=== PATIENT | female | born 1980 | race Caucasian/White ===

== ENCOUNTER 2020-03-21 06:28 | Emergency (ER) | payer OTHER ==
[~2020-03-21] VITALS: Ht 160 cm; Wt 86.0 kg
[2020-03-21 07:28] LABS: HEMOGLOBIN 12.4 g/dl (12.0-16.0); IMMATURE GRANULOCYTES 0.2 % (0.0-5.0); MEAN CELL VOLUME 89.5 fL CALC (80.0-100.0); MEAN CORPUSCULAR HGB 27.7 pG CALC (26.0-32.0); NEUT# 3.91 thou/uL (2.00-7.15); RED BLOOD COUNT 4.47 mill/uL (4.20-5.60); RED CELL DISTRI WIDTH 14.6 % (11.5-15.5)
[2020-03-21 07:40] LABS: ALBUMIN 4.6 g/dL (3.2-5.0); ALKALINE PHOSPHATASE 69 u/l (38-126); AMYLASE 64 u/l (30-110); ANION GAP 14 (6-22 (CALC)); BILIRUBIN, TOTAL 0.7 mg/dL (0.0-1.4); BUN 17 mg/dL (7-17); BUN/CREATININE RATIO 17 (12-20 (CALC)); CARBON DIOXIDE 26 mmol/l (22-30); CHLORIDE 106 mmol/l (95-108); GFR > 60 ML/MIN (>=60 (CALC)); GFR FOR AFR.AMER. > 60 ML/MIN (>=60 (CALC)); LIPASE 59 u/l (23-300); POTASSIUM 3.7 mmol/l (3.5-5.1); SGOT/AST 26 u/l (14-36); SODIUM 142 mmol/l (137-146); TOTAL PROTEIN 7.8 g/dL (6.3-8.2)
[2020-03-21 08:21] LABS: URINE BILIRUBIN - DIPSTICK NEGATIVE (NEGATIVE); URINE BLOOD DIPSTICK LARGE (NEGATIVE); URINE COLOR YELLOW; URINE GLUCOSE - DIPSTICK NEGATIVE (NEGATIVE); URINE KETONE TRACE mg/dL (NEGATIVE); URINE LEUK ESTERASE NEGATIVE (NEGATIVE); URINE NITRITE - DIPSTICK NEGATIVE (Negative); URINE PROTEIN - DIPSTICK NEGATIVE (NEG-TRACE); URINE SPECIFIC GRAVITY 1.025; URINE UROBILINOGEN - DIPSTICK 0.2 E.U./dL (0.2)
[2020-03-21 08:32] LABS: URINE RBC 25-50 RBC/hpf (0-5)
[2020-03-21 08:33] LABS: URINE BACTERIA FEW hpf
[2020-03-21 08:34] LABS: URINE SQUAMOUS EPITHELIAL CELL FEW EPI/hpf (0-FEW)
[2020-03-21] MEDS ORDERED: PERCOCET 5/325M1 TAB PO (08:40)
[2020-03-21] MEDS ORDERED: ZOFRAN4 MG/TAB PO (08:40)
[2020-03-21] MEDS ORDERED: TAMSULOSIN0.4 MG PO (08:40)
[2020-03-21 08:50] VITALS: BP 127/85
== END 2020-03-21 08:52 | disposition home or self-care (01) | DRG 694 ==
LOC: ED 06:28
PROVIDERS: Family Medicine
DX: N20.1 Calculus of ureter (principal)

== ENCOUNTER 2020-07-20 13:35 | Inpatient (IN) | payer OTHER ==
[~2020-07-20] VITALS: Ht 160 cm; Wt 92.1 kg
[~2020-07-20 13:35] MED LIST: PERCOCET 5/325M1 TAB PO; TAMSULOSIN0.4 MG PO; ZOFRAN4 MG/TAB PO
--- NOTE | 2020-07-20 13:35 | NUR ---
PT ASSISTED TO ROOM VIA W/C BY NURSE LADARIUS
[2020-07-20 14:25] LABS: HEMATOCRIT 37.7 % (37.0-47.0); HEMOGLOBIN 11.6 g/dl (12.0-16.0); IMMATURE GRANULOCYTES 0.6 % (0.0-5.0); MEAN CELL VOLUME 87.7 fL CALC (80.0-100.0); MEAN CORPUSCULAR HGB CONC 30.8 g/dL CAL (32.0-36.0); NEUT# 11.22 thou/uL (2.00-7.15); RED BLOOD COUNT 4.3 mill/uL (4.20-5.60); RED CELL DISTRI WIDTH 14.5 % (11.5-15.5)
--- NOTE | 2020-07-20 14:28 | NUR ---
TREATMENTS COMPLETED AND AWAITING RESULTS. O2 APPLIED. DENIES ANY NEEDS A THIS TIME. ANTIBIOTICS INFUSING INTO PATENT IV.
[2020-07-20 14:45] LABS: ALKALINE PHOSPHATASE 63 u/l (38-126); ANION GAP 12 (6-22 (CALC)); BILIRUBIN, TOTAL 0.6 mg/dL (0.0-1.4); BUN 17 mg/dL (7-17); BUN/CREATININE RATIO 25 (12-20 (CALC)); CARBON DIOXIDE 31 mmol/l (22-30); CHLORIDE 100 mmol/l (95-108); CREATININE 0.7 mg/dL (0.5-1.0); GFR > 60 ML/MIN (>=60 (CALC)); GFR FOR AFR.AMER. > 60 ML/MIN (>=60 (CALC)); LIPASE 37 u/l (23-300); POTASSIUM 3.2 mmol/l (3.5-5.1); SGOT/AST 27 u/l (14-36); SODIUM 140 mmol/l (137-146); TOTAL PROTEIN 7.9 g/dL (6.3-8.2)
[2020-07-20 14:56] LABS: C-REACTIVE PROTEIN 17.6 mg/dL (0-0.9)
--- NOTE | 2020-07-20 15:30 | NUR ---
PT RESTING ON STRETCHER WITH ANTIBIOTICS AND FLUID INFUSING INTO PATENT IV. SHE STATES THAT HER BREATHING HAS IMPROVED AND IS ABLE TO DO SO EFFORTLESSLY.
--- NOTE | 2020-07-20 16:50 | NUR ---
GAVE REPORT TO NIKOLAI
--- NOTE | 2020-07-20 16:55 | NUR ---
PT TRANSPORTED OUT OF ER STABLE AND IN NO DISTRESS BY W/C. CARE ASSUMED TO NIKOLAI Admission Note Report Given to: NIKOLAI Transported by: X Wheelchair Stretcher Transported with: X Nurse Transporter X Patent IV O2 X Carbonating Stone Cleaner Location: ICU X [facility]
--- NOTE | 2020-07-20 17:04 | NUR ---
PT ARRIVED VIA WC WITH STAFF. O2 AND IV SITE.
[2020-07-20 17:30] VITALS: BP 129/69
--- NOTE | 2020-07-20 17:30 | NUR ---
ASSESSMENT IS COMPLETED: IV SITE IS FREE FROM REDNESS OR EDEMA. HR IS REG, PULSES ARE STRONG X4, ABD IS SOFT WITH ACTIVE BS BREATH SOUNDS ARE DIMINISHED, CLEAR AND CRACKLES. O2 @ 2LITERS WITH NC. TELE MONITOR IN PLACE. PT ABLE TO AMBULATE TO THE BATHROOM
--- NOTE | 2020-07-20 17:56 | NUR ---
RECEIVED A CALL FROM SPOUSE AND EXPLAINED RE: NO VISITORS IN THE COVID MOORE. ABLE TO BRING STUFF AND LEAVE AT THE DESK. ALSO HAS A PHONE IN THE ROOM.
--- NOTE | 2020-07-20 18:31 | NUR ---
SPOKE WITH PT RE: RULES OF THE VISITATION WITH COVID PTS. VERBALIZED UNDERSTANDING.
--- NOTE | 2020-07-20 19:58 | NUR ---
PATIENT RESTING IN BED AT THIS TIME WITH O2 VIA NASAL CANNULA IN PLACE-O2 SAT IS 95%. AWAKE ALERT AND ORIENTEDX3. TELE MONITOR IN PLACE. IVF NS PATENT AND INFUSING VIA RAC SITE AT 50CC/HR. SITE IS HEALTHY AT THIS TIME. DENIES ANY DIARRHEA-NO BM FOR A COUPLE DAYS. ABD IS SOFT W33ITH ACTIVE BS. LUNGS ARE CLEAR AND DIMINISHED. STATES THAT HER URINE OUTPUT HAS BEEN DOWN BUT HASN'T BEEN EATING OR DRINKING MUCH LAST COUPLE OF DAYS. APPETITE FOR DINNER ONLY FAIR. NON-PRODUCTIVE COUGH NOTED. INSTRUCTED PATIENT ON USE OF IS Q1H WHILE AWAKE IN REPS OF 10. PATIENT IS ABLE TO DEMONSTRATE PROPER USE OF THE DEVICE. ENCOURAGED PRONING IF POSSIBLE. C/O HEADACHE-3/10 ON PAIN SCALE. MEDICATED WITH TYLENOL 650MG PO. COOL PACK PROVIDED FOR THE BACK OF HER NECK. PATIENT ON ISOLATION FOR COVID. SAFETY PRECAUTIONS REINFORCED. CALL LIGHT IN REACH. WILL CONT TO MONITOR.
--- NOTE | 2020-07-20 22:06 | NUR ---
MINIMAL RELIEF FROM TYLENOL TAKEN EARLIER. STILL 3/3 ON PAIN SCALE. NO OTHER COMPLAINTS AT THIS TIME. O2 VIA NASAL CANNULA IN PLACE AT 2LPM. TELE MONITOR REMAINS IN PLACE. IVF PATENT AND INFUSING VIA RAC SITE AT 50CC/HR. CALL LIGHT IN REACH. WILL CONT TO MONITOR.
[2020-07-20 23:50] VITALS: BP 122/61
--- NOTE | 2020-07-21 00:12 | NUR ---
PATIENT RESTING IN BED-EYES ARE CLOSED AND O2 VIA NASAL CANNULA IN PLACE. O2 SAT IS 97%. RESPS ARE EVEN AND UNLABORED. TELE MONITOR IN PLACE. IVF PATENT AND INFUSING VIA RAC SITE AT 50CC/HR. CALL LIGHT IN REACH. WILL CONT TO MONITOR.
--- NOTE | 2020-07-21 01:39 | NUR ---
PATIENT IS LYING PRONE AT THIS TIME-RESPS ARE EVEN AND UNLABORED AT THIS TIME. O2 VIA NASAL CANNULA IN PLACE. TELE MONITOR IN PLACE. IVF PATENT AND INFUSING VIA RAC SITEW AT 50CC/HR. CALL LIGHT IN REACH. WILL CONT TO MONITOR.
[2020-07-21 04:00] VITALS: BP 121/64
[2020-07-21 05:12] LABS: HEMATOCRIT 38.2 % (37.0-47.0); HEMOGLOBIN 11.6 g/dl (12.0-16.0); IMMATURE GRANULOCYTES 0.9 % (0.0-5.0); MEAN CELL VOLUME 88.8 fL CALC (80.0-100.0); MEAN CORPUSCULAR HGB CONC 30.4 g/dL CAL (32.0-36.0); NEUT# 5.72 thou/uL (2.00-7.15); RED BLOOD COUNT 4.3 mill/uL (4.20-5.60); RED CELL DISTRI WIDTH 14.6 % (11.5-15.5)
[2020-07-21 05:35] LABS: BUN 17 mg/dL (7-17); BUN/CREATININE RATIO 29 (12-20 (CALC)); CARBON DIOXIDE 30 mmol/l (22-30); CHLORIDE 103 mmol/l (95-108); CREATININE 0.6 mg/dL (0.5-1.0); GFR > 60 ML/MIN (>=60 (CALC)); GFR FOR AFR.AMER. > 60 ML/MIN (>=60 (CALC)); SODIUM 139 mmol/l (137-146)
[2020-07-21 05:47] LABS: ANION GAP 10 (6-22 (CALC)); C-REACTIVE PROTEIN 16.8 mg/dL (0-0.9); POTASSIUM 4.3 mmol/l (3.5-5.1)
--- NOTE | 2020-07-21 06:02 | NUR ---
PATIENT AWAKE AND RESTING IN BED WITH O2 VIA NASAL CANNULA IN PLACE. PATIENT WAS ABLE TO LIE PRONE THROUGHOUT THE NIGHT. ENCOURAGED USE OF IS INSTRUCTED. TELE MONITOR IN PLACE. IVF NS PATENT AND INFUSING VIA RAC SITE AT 50CC/HR. CALL LIGHT IN REACH. WILL CONT TO MONITOR.
--- NOTE | 2020-07-21 07:35 | NUR ---
ASSESSMENT IS COMPLETED: NO DISTRESS NOTED.IV SITE IS FREE FROM REDNESS OR EDEMA. HR IS REG, PULSES ARE STRONG X4, ABD IS SOFT WITH ACTIVE BS. BREATH SOUNDS ARE CLEAR AND DIMINISHED. O2 @ 2LITERS WITH NC. SATS ARE 97-98%. PT IS USING THE ISP. TELE MONITOR #[id number] IN USE/
[2020-07-21 07:36] VITALS: BP 110/65
--- NOTE | 2020-07-21 09:47 | NUR ---
PT IS RELAXING IN BED WITH NO DISTRESS NOTED. IV SITE IS FREE FROM REDNESS
[2020-07-21 10:50] VITALS: BP 131/61
--- NOTE | 2020-07-21 11:00 | NUR ---
PT AMBULATING AND GOING TO GET A SHOWER.
[2020-07-21 15:04] VITALS: BP 121/72
--- NOTE | 2020-07-21 18:35 | NUR ---
MOVED PT ROOM [id number] DUE TO MAINTENACE. PT VERBALIZED UNDERSTANDING.
[2020-07-21 19:09] VITALS: BP 156/80
--- NOTE | 2020-07-21 20:30 | NUR ---
PATIENT RESTING IN BED AT THIS TIME-AWAKE ALERT AND ORIENTEDX3. O2 IS OFF AND O2 SAT AT THIS TIME IS 94%. STILL SOB WITH EXHERSION. NON-PRODUCTIVE COUGH. LUNGS ARE CLEAR BUT DIMINISHED. USING IS INSTRUCTED Q1H WHILE AWKAE. ABLE TO DEMONSTRATE PROPER USE OF THE DEVICE. ENCOURAGED PRONING WHEN POSSIBLE. TELE MONITOR IN PLACE-LAST READING SR-60. PATIENT STATES THAT SHE DID HAVE A SMALL BM TODAY. APPETITE SLOWLY RETURNING. ABD IS SOFT WITH ACTIVE BS. NO PERIPHERAL EDEMA. PULSES ARE PALPABLE. IVF NS PATENT AND INFUSING VIA RIGHT AC SITE AT 50CC/HR. PATIENT ON ISOLATION FOR COVID. SAFETY PRECAUTIONS REINFORCED. CALL LIGHT IN REACH. ENCOURAGED PO FLUIDS. WILL CONT TO MONITOR.
--- NOTE | 2020-07-22 | NUR ---
PATIENT RESTING IN BED AT THIS TIME WITH O2 OFF-O2 SAT AT THIS TIME IS 96% ON RA. TELE MONITOR IN PLACE AND READING SB-45. PATIENT IS SOB WHEN UP TO THE BR BUT DOES RECOVER AFTER SHORT PERIOD OF REST. IVF PATENT AND INFUSING VIA RIGHT AC AT 50CC/HR. CALL LIGHT IN REACH. WILL CONT TO MONITOR.
[2020-07-22 00:17] VITALS: BP 143/85
--- NOTE | 2020-07-22 03:57 | NUR ---
PATIENT CONT TO REST ON LEFT SIDE WITH O2 VIA NASAL CANNULA IN PLACE. RESPS ARE EVEN AND UNLABORED. IVF PATENT AND INFUSING VIA LEFT FOREARM SITE AT 125CC/HR. CALL LIGHT IN REACH. WILL CONT TO MONITOR.
--- NOTE | 2020-07-22 03:59 | NUR ---
PATIENT LYING PRONE IN BED AT THIS TIME. RESPS ARE EVEN AND UNLABORED. TELE MONITOR IN PLACE AND READING SB. IVF NS PATENT AND INFUSING VIA RAC AT 50CC/HR. CALL LIGHT IN REACH. WILL CONT TO MONITOR.
[2020-07-22 05:10] VITALS: BP 139/86
[2020-07-22 05:11] LABS: HEMATOCRIT 38.8 % (37.0-47.0); HEMOGLOBIN 11.8 g/dl (12.0-16.0); IMMATURE GRANULOCYTES 1.2 % (0.0-5.0); MEAN CELL VOLUME 88.8 fL CALC (80.0-100.0); MEAN CORPUSCULAR HGB CONC 30.4 g/dL CAL (32.0-36.0); NEUT# 4.1 thou/uL (2.00-7.15); RED BLOOD COUNT 4.37 mill/uL (4.20-5.60); RED CELL DISTRI WIDTH 14.2 % (11.5-15.5)
[2020-07-22 05:30] LABS: ALBUMIN 3.4 g/dL (3.2-5.0); ALKALINE PHOSPHATASE 56 u/l (38-126); ANION GAP 9 (6-22 (CALC)); BILIRUBIN, TOTAL 0.6 mg/dL (0.0-1.4); BUN 21 mg/dL (7-17); BUN/CREATININE RATIO 31 (12-20 (CALC)); CARBON DIOXIDE 30 mmol/l (22-30); CHLORIDE 103 mmol/l (95-108); CREATININE 0.7 mg/dL (0.5-1.0); GFR > 60 ML/MIN (>=60 (CALC)); GFR FOR AFR.AMER. > 60 ML/MIN (>=60 (CALC)); POTASSIUM 3.8 mmol/l (3.5-5.1); SGOT/AST 21 u/l (14-36); SODIUM 138 mmol/l (137-146); TOTAL PROTEIN 6.6 g/dL (6.3-8.2)
[2020-07-22 08:00] VITALS: BP 111/65
--- NOTE | 2020-07-22 08:00 | NUR ---
PT RESTING IN THE BED AXOX3, NO SOB NOTED AT THIS TIME. IV INFUSING, PT DENIES PAIN. ENCOURAGED TO USE ISSU. REPOSITIOEND FOR COMOFRT, SIDE RAILS UP CALL LIGHT IN REACH BED LOCKED IN LOW POSITION, WILL CONTINUE TO MONIOTR THE PATIENT.
--- NOTE | 2020-07-22 09:58 | NUR ---
OUT OF THE BED TO THE SHOWER. NO RESP DISTRESS NOTED. ENCOURAGED THE PATIENT TO SIT UP IN THE BEDSIDE CHAIR AFTER HER SHOWER. WILL CONTINUE TO MONITOR THE PATIENT.
[2020-07-22 10:00] VITALS: BP 133/78
--- NOTE | 2020-07-22 10:58 | NUR ---
PT RESQUESTED A SHOWER, ELIZABETH WITHOUT ANY RESP DISTRESS. PRESENTLY RESTING COMOFRTABLE IN THE CHAIR. CALL LIGHT IN REACH, NO DISTRESS NOTED AT THIS TIME. WILL CONTNUE TO MONIOTR THE PATIENT.
--- NOTE | 2020-07-22 12:03 | NUR ---
ENCOURAGED THE PATEINT TO TRY AND EAT MUCH SHE CAN FOR LUNCH. NO RESP DISTRESS NOTED AT THIS TIME. PT SITTING UP IN THE BEDSIDE CHAIR, CALL LIGHT IN REACH, WILL CONTINUE TO MONIOTR THE PATIENT.
--- NOTE | 2020-07-22 13:10 | NUR ---
PT RESTING COMFORTABLE IN THE BED SIDE CHAIR, O2 IN PLACE, NO RESP DISTRESS NOTED AT THIS TIME. CALL LIGHT IN REACH, NO DITRESS NOTED AT THIS TIME. WILL CONTINUE TO MONIOTR THE PATIENT.
[2020-07-22 15:25] VITALS: BP 128/88
--- NOTE | 2020-07-22 16:23 | NUR ---
PT RESTING IN THE BEDSIDE CHAIR, EDUCATED ON COVID RESULTS AND ANTIBIOTIC THERAPY. O2 RA, NO RESP DISTRESS NOTED. CALL LIGHT IN REACH, WILL CONTINUE TO MONIOTR THE PATIENT.
--- NOTE | 2020-07-22 18:31 | NUR ---
PT RESTING COMFORTABLE IN THE BEDSIDE CHAIR. ALL QUESTIONS ANSWERED. NO RESP DISTRESS NOTED THIS TIME.
[2020-07-22 19:00] VITALS: BP 151/74
--- NOTE | 2020-07-22 21:19 | NUR ---
PATIENT SITTING UP IN BED AT THIS TIME-NO O2. O2 SAT ON RA IS 95%. AWAKE ALERT AND ORIENTEDX3 IN GOOD SPIRITS. PATIENT STATES THAT SHE IS NOW HAVING A MORE PRODUCTIVE COUGH WITH THIN CLEAR SECREATIONS. MEDICATED WITH ROBITUSSIN 10CC ORDERED. LUNGS ARE CLEAR. STILL USING IS Q1H INSTRUCTED IN REPS OF 10. ABD IS SOFT WITH BS+. BM TODAY-STATES THAT IT WAS ON THE LOOSE SIDE. ,VOIDING QS WITHOUT ANY DIFFICULTY. STATES THAT HER APPETITE IS SLIGHTLY IMPROVED. REMAINS ON ISOLATION FOR COVID. SAFETY PRECAUTIONS REINFORCED. CALL LIGHT IN REACH. WILL CONT TO MONITOR.
[2020-07-23] VITALS: BP 107/50
--- NOTE | 2020-07-23 01:00 | NUR ---
PATIENT RESTING IN BED-STATES THAT SHE DID BECOME AND USE HER VENTOLIN INHALER FOR SOB WITH RELIEF. IVF PATENT AND INFUSING VIA RAC AT 50CC/HR. TELE MONITOR IN PLACE. CALL LIGHT IN REACH. WILL CONT TO MONITOR.
[2020-07-23 04:00] VITALS: BP 136/68
--- NOTE | 2020-07-23 05:00 | NUR ---
PATIENT RESTING IN BED WITH O2 OFF AND O2 SAT OF 97%. NO COMPLAINTS AT THIS TIME. IVF PATENT AND INFUSING AT 50CC/HR. SITE IS HEALTHY. TELE MONITOR IN PLACE. CALL LIGHT IN REACH. WILL CONT TO MONITOR.
[2020-07-23 06:17] LABS: HEMATOCRIT 39.4 % (37.0-47.0); IMMATURE GRANULOCYTES 1.9 % (0.0-5.0); MEAN CELL VOLUME 87.2 fL CALC (80.0-100.0); MEAN CORPUSCULAR HGB 26.5 pG CALC (26.0-32.0); MEAN CORPUSCULAR HGB CONC 30.5 g/dL CAL (32.0-36.0); RED BLOOD COUNT 4.52 mill/uL (4.20-5.60); RED CELL DISTRI WIDTH 13.9 % (11.5-15.5)
[2020-07-23 07:45] VITALS: BP 106/52
--- NOTE | 2020-07-23 07:45 | NUR ---
ASSESSMENT IS COMPLETED: IV SITE IS FREE FROM REDNESS OR EDEMA. HR IS REG,PULSES ARE STRONG X4, ABD IS SOFT WITH ACTIV EBS. BREATH SOUNDS ARE CLEAR,BILATERALLY. HAS A COUGH, ALSO SOME LOOSE STOOLS. TELE MONITOR IN PLACE.
[2020-07-23 07:46] LABS: ALBUMIN 3.1 g/dL (3.2-5.0); ALKALINE PHOSPHATASE 60 u/l (38-126); ANION GAP 11 (6-22 (CALC)); BILIRUBIN, TOTAL 0.6 mg/dL (0.0-1.4); BUN 18 mg/dL (7-17); BUN/CREATININE RATIO 30 (12-20 (CALC)); CARBON DIOXIDE 29 mmol/l (22-30); CHLORIDE 101 mmol/l (95-108); CREATININE 0.6 mg/dL (0.5-1.0); GFR > 60 ML/MIN (>=60 (CALC)); GFR FOR AFR.AMER. > 60 ML/MIN (>=60 (CALC)); POTASSIUM 4.1 mmol/l (3.5-5.1); SGOT/AST 19 u/l (14-36); SODIUM 136 mmol/l (137-146); TOTAL PROTEIN 6.3 g/dL (6.3-8.2)
[2020-07-23 11:12] VITALS: BP 140/73
--- NOTE | 2020-07-23 12:05 | NUR ---
PT IS SITTING IN THE CHAIR. NO DISTRESS NOTED. IV SITE IS FREE FROM REDNESS OR EDEMA.
[2020-07-23 15:38] VITALS: BP 119/69
--- NOTE | 2020-07-23 16:05 | NUR ---
PT REMAINS SITTING IN THE CHAIR. NO DISTRESS NOTED. IV SITE IS FREE FROM REDNESS OR EDEMA.
[2020-07-23 19:00] VITALS: BP 117/62
--- NOTE | 2020-07-23 19:05 | NUR ---
REPORT RECEIVED FROM Kaya FUCHS LPN, CARE OF PT ASSUMED AT THIS TIME.
--- NOTE | 2020-07-23 20:30 | NUR ---
PHYSICAL ASSESMENT COMPLETED. PT SITTING UP IN RECLINER, AWAKE AND ALERT, APPEARS TO BE IN GOOD SPIRITS, REPORTS "IM FEELING SO MUCH BETTER". RESPIRATIONS REGULAR AND UNLABORED, NO APPARENT DISTRESS. SPO2 95% ON RA. PERSISTENT DRY NON-PRODUCTIVE COUGH IS NOTED. PLAN OF CARE REVIEWED, PT VERBALIZES UNDERSTANDING. PT REPORTS "MY APPETITE IS BACK IN FULL SWING" AND REQUEST SNACK, HS SNACK PROVIDED REQUESTED, DENIES ANY FURTHER NEEDS AT THIS TIME. CALL FORDE WITHIN REACH, AGREES TO CALL PRN.
--- NOTE | 2020-07-23 21:05 | NUR ---
SEE E-MAR FOR MEDICATION ADMINISTRATION RECORD.
[2020-07-24] VITALS: BP 119/70
--- NOTE | 2020-07-24 00:30 | NUR ---
PT APPEARS TO BE SLEEPING COMFORTABLY, LAYING IN BED WITH EYES CLOSED, RESPIRATIONS REGULAR AND UNLABORED, NO APPARENT DISTRESS. CALL FORDE REMAINS WITHIN REACH.
[2020-07-24 04:00] VITALS: BP 119/74
--- NOTE | 2020-07-24 04:20 | NUR ---
Dominick NASCIMENTO FLORIST'S DECORATOR AT BEDSIDE TO COLLECT AM BLOOD WORK.
[2020-07-24 05:39] LABS: HEMATOCRIT 38.4 % (37.0-47.0); HEMOGLOBIN 11.9 g/dl (12.0-16.0); IMMATURE GRANULOCYTES 2.4 % (0.0-5.0); MEAN CELL VOLUME 86.9 fL CALC (80.0-100.0); MEAN CORPUSCULAR HGB 26.9 pG CALC (26.0-32.0); NEUT# 3.05 thou/uL (2.00-7.15); RED BLOOD COUNT 4.42 mill/uL (4.20-5.60); RED CELL DISTRI WIDTH 13.6 % (11.5-15.5)
[2020-07-24 05:49] LABS: ALBUMIN 3.3 g/dL (3.2-5.0); ALKALINE PHOSPHATASE 53 u/l (38-126); ANION GAP 10 (6-22 (CALC)); BILIRUBIN, TOTAL 0.6 mg/dL (0.0-1.4); BUN 21 mg/dL (7-17); BUN/CREATININE RATIO 35 (12-20 (CALC)); CARBON DIOXIDE 28 mmol/l (22-30); CHLORIDE 102 mmol/l (95-108); CREATININE 0.6 mg/dL (0.5-1.0); GFR > 60 ML/MIN (>=60 (CALC)); GFR FOR AFR.AMER. > 60 ML/MIN (>=60 (CALC)); POTASSIUM 4.4 mmol/l (3.5-5.1); SGOT/AST 25 u/l (14-36); SODIUM 135 mmol/l (137-146); TOTAL PROTEIN 6.5 g/dL (6.3-8.2)
[2020-07-24 07:30] VITALS: BP 118/62
--- NOTE | 2020-07-24 07:30 | NUR ---
PATIENT LAYING IN BED AT THIS TIME. NOTED DRY COUGH. LUNG SOUNDS ARE CLEAR IN ALL SANCHEZ, PATIENT ALERT AND ORIENTED AT THIS TIME. TELE MONITOR ON AND BEING MONITORED BY ED. PATIENT IS ON ROOM AIR AND SPO2 AT THIS TIME IS 96%. PATIENT DENIES SHORTNESS OF BREATH. SIDERAILS ARE UP X 2 CALL LIGHT IS WITHIN REACH.
[2020-07-24 11:44] VITALS: BP 120/67
[2020-07-24] MEDS ORDERED: ZITHROMAX250 MG PO (11:54)
[2020-07-24] MEDS ORDERED: DEXAMETHASON6 MG PO (11:54)
[2020-07-24] MEDS ORDERED: ASPIRIN 81 LOW81 MG PO (11:55)
--- NOTE | 2020-07-24 11:59 | NUR ---
PATIENT RESTING IN BED AT THIS TIME EATING LUNCH. PATIENT DENIES ANY NEEDS AND OR PAIN AT THIS TIME. PATIENT IS NO SHORT OF BREATH AND SIDERAILS ARE UP X 2 CALL LIGHT IS WITHIN REACH.
--- NOTE | 2020-07-24 13:15 | NUR ---
PATIENT D/C AT THIS TIME. PATIENT VERBALIZES UNDERSTANDING OF D/C INSTRUCTIONS AT THIS TIME.
--- NOTE | 2020-07-24 13:57 | NUR ---
Discharge instructions given. Patient verbalizes understanding of same. Discharged in stable condition via Wheelchair to Home with staff. All belongings sent with pt.
== END 2020-07-24 13:55 | disposition home or self-care (01) | DRG 177 ==
LOC: ED 13:35 → ED-I 15:46 → ED 16:00 → MS2 16:01
PROVIDERS: Family Medicine; Nurse Practitioner; ADMIT Internal Medicine; ATTEND Internal Medicine
PROC: XW033E5 Introduction of Remdesivir Anti-infective into Peripheral Vein, Percutaneous Approach, New Technology Group 5 (ICD-10-PCS; principal; 2020-07-21)
DX: U07.1 COVID-19 (principal); J12.82 Pneumonia due to coronavirus disease 2019; R09.02 Hypoxemia; I10 Essential (primary) hypertension; E66.9 Obesity, unspecified; Z68.35 Body mass index [BMI] 35.0-35.9, adult
CPT/HCPCS: J1650; Q9967